=== PATIENT | male | born 2005 | race Caucasian/White ===

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

== ENCOUNTER 2023-02-24 13:57 | Emergency (ER) | payer OTHER, SELFPAY ==
[2023-02-24 14:07] VITALS: BP 127/81; PULSE 63; RESP 16; TEMP 37.2; O2SAT 99
--- NOTE | 2023-02-24 14:17 | ED.NAVMDI ---
HPI - Nausea/Vomiting/Diarrhea General Chief complaint: Nausea/Vomiting/Diarrhea Stated complaint: Vomiting Time Seen by Provider: 02/24/23 14:17 Source: patient Mode of arrival: ambulatory Limitations: no limitations History of Present Illness HPI Narrative: 17-year-old male presents to [facility] today for a work note. Patient reports that his brother approximately 1 week ago. He reports that he got some days off for bereavement leave but was very sad after the and needed another day off work. 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 Has taken him off the schedule until he brings in a work note. All systems reviewed and negative except as noted above. Related Data Home Medications Medication Instructions Recorded Confirmed No Home Medications 02/24/23 02/24/23 Allergies Allergy/AdvReac Type Severity Reaction Status Date / Time No Known Allergies Allergy Verified 07/18/21 08:01 Review of Systems Review of Systems: CONSTITUTIONAL: Denies fever, chills, or sweats. EYES: Denies visual changes, redness, or discharge. ENT: Denies rhinorrhea, congestion, sore throat, or otalgia. CARDIOVASCULAR: Denies chest pain, palpitations, or edema. RESPIRATORY: Denies cough or dyspnea. GASTROINTESTINAL: Denies abdominal pain, nausea, vomiting, or diarrhea. GENITOURINARY: Denies dysuria or hematuria. SKIN: Denies rash or itching. MUSCULOSKELETAL: Denies back pain, joint pain, or myalgia. NEUROLOGIC: Denies headache, numbness, or weakness. PSYCHIATRIC: Denies anxiety or depression. All other systems reviewed are negative, except as documented in HPI. [facility] Past Medical History Medical History Bipolar disorder Surgical History Surgical History No significant past surgical history Social History Social History Smoking status: Never smoker Tobacco type: cigarettes Alcohol intake: never Living arrangements: with family Gender identity (if verbalized by the patient): Male Comments At time of signature, agree with nursing past medical, surgical, social and family history. There is no relevant family history pertinent to the presenting complaint. Exam Narrative: GENERAL: This is a well-nourished, well-developed patient, in no apparent distress. HEAD: normocephalic, atraumatic. EYES: PERRL. Sclera clear/white. Vision is grossly intact. EARS: External ears normal, auditory canals clear and without drainage, TMs normal without perforation. Hearing grossly intact. NOSE: External nose normal with no obvious nasal discharge, nares without redness, no rhinorrhea. THROAT: Mucous membranes moist, posterior pharynx clear. NECK: Neck supple, non-tender without lymphadenopathy, masses or thyromegaly. CARDIOVASCULAR: Regular rate and rhythm without murmurs, gallops, or rubs. RESPIRATORY: Clear to auscultation. Breath sounds equal bilaterally. No wheezes, rales, or rhonchi. GASTROINTESTINAL: Abdomen soft, non-tender, nondistended. Bowel sounds are active. No hepato-splenomegaly, or palpable masses. No guarding. SKIN: warm, Dry, intact with no suspicious lesions or rash, good texture and turgor. NEURO: awake, alert, and oriented to person, place and time. There were no obvious focal neurologic abnormalities. EXTREMITIES: No joint tenderness, effusion, or edema noted. No calf tenderness. Negative Homans sign bilaterally. BACK: Nontender without deformity. No CVA tenderness. Course Course Level of Care: Express Care Visit Vital Signs Vital signs: Vital Signs Temperature 37.2 C 02/24/23 14:07 Pulse Rate 63 02/24/23 14:07 Respiratory Rate 16 02/24/23 14:07 Blood Pressure 127/81 02/24/23 14:07 Pulse Oximetry 99 02/24/23 14:07 Oxygen Delivery Room Air 02/24/23 14:07 Temperature 37.2 C 02/24/23
== END 2023-02-24 14:28 | disposition home or self-care (01) ==
PROVIDERS: Emergency Provider Nurse Practitioner Family
DX: Z71.1 Person with feared health complaint in whom no diagnosis is made (principal)
CPT/HCPCS: 99211; G0463

== ENCOUNTER 2023-03-04 18:29 | Emergency (ER) | payer OTHER, SELFPAY ==
[2023-03-04 18:42] VITALS: BP 122/70; PULSE 82; RESP 20; TEMP 36.3; O2SAT 99
[2023-03-04 18:54] LABS: Basophils Percent Auto 0.2 % (0.2-1.2); Eosinophils Percent Auto 0.1 % (0-4.4); Hematocrit 43.7 % (42.0-52.0); Hemoglobin 14.8 g/dL (14.0-18.0); Immature Granulocyte Absolute 0.03 K/mm3 (0.00-0.031); Immature Granulocyte Percent A 0.2 % (0-0.5); Lymphocytes Absolute Auto 1.06 K/mm3 (0.9-3.2); Lymphocytes Percent Auto 8.6 % (18.3-44.2); Mean Corpuscular HGB Conc 33.9 g/dl (32-36); Mean Corpuscular Volume 85.7 fl (80-100); Monocytes Absolute Auto 0.3 K/mm3 (0.1-0.6); Monocytes Percent Auto 2.1 % (2.6-8.5); Neutrophils Percent Auto 88.8 % (45.5-73.1); Platelet Count Result 228 k/mm3 (150-375); Red Cell Distribution Width 12.6 % (11.5-14.5); White Blood Count 12.4 K/mm3 (4.5-10.0)
[2023-03-04 19:04] LABS: Alanine Aminotransferase 21 U/L (6-50); Albumin Level 5.2 g/dL (3.7-5.6); Alkaline Phosphatase 101 U/L (58-237); Anion Gap 10 mmol/L (8-16); Aspartate Amino Transferase 22 U/L (17-59); Bilirubin,Total 0.5 mg/dL (0.2-1.3); Blood Urea Nitrogen 7 mg/dL (8-21); Calcium 9.6 mg/dL (8.9-10.7); Carbon Dioxide 26 mmol/L (22-30); Chloride 103 mmol/L (98-107); Estimated CRCL calculation 146 ml/min; Estimated Glomerular Filt Rate > 60; Glucose 108 mg/dL (65-110); Lipase 577 U/L (23-300); Potassium 4.1 mmol/L (3.4-5.0); Sodium 139 mmol/L (134-143)
[2023-03-04 20:02] VITALS: O2SAT 98
[2023-03-04 20:04] VITALS: BP 117/67; O2SAT 96
--- NOTE | 2023-03-04 20:20 | ED.NAVMDI ---
HPI - Nausea/Vomiting/Diarrhea General Chief complaint: Nausea/Vomiting/Diarrhea Stated complaint: vomiting Time Seen by Provider: 03/04/23 20:11 History of Present Illness HPI Narrative: Patient is a 17-year-old male presenting with nausea and vomiting. Patient states that since this morning he has had numerous episodes of vomiting. States that he has been vomiting bile since he has not been able to eat today. States that he also had an episode of diarrhea earlier today. Denies hematochezia or melena. He denies abdominal pain. States that he is does still feel a little bit nauseous. Denies chest pain, shortness of breath, cough, fevers, dysuria, hematuria, rashes. Related Data Allergies Allergy/AdvReac Type Severity Reaction Status Date / Time No Known Allergies Allergy Verified 07/18/21 08:01 Review of Systems Review of Systems: All systems reviewed & are unremarkable except as noted in HPI and below PMFSH Past Medical History Medical History Bipolar disorder Surgical History Surgical History No significant past surgical history Social History Social History Smoking status: Never smoker Tobacco type: cigarettes Alcohol intake: never Living arrangements: with family Gender identity (if verbalized by the patient): Male Exam Narrative: GENERAL: Well-appearing, well-nourished, and in no acute distress. HEAD: Normocephalic, atraumatic. EYES: PERRLA and EOMI. ENT: Nares clear, no rhinorrhea or epistaxis. Mucous membranes moist. NECK: Supple. CHEST: Clear to auscultation. No respiratory distress. HEART: Regular rate and rhythm. No murmur heard. Normal peripheral pulses. ABDOMEN: Soft, nontender, nondistended, no guarding or rebound EXTREMITIES: Normal range of motion. No edema. SKIN: Warm, dry, no rash. NEURO: No focal deficits. Alert and oriented x3. PSYCH: Normal mood and affect. Course Vital Signs Vital signs: Vital Signs Temperature 97.3 F L 03/04/23 18:42 Pulse Rate 82 03/04/23 18:42 Respiratory Rate 20 03/04/23 18:42 Blood Pressure 122/70 03/04/23 18:42 Pulse Oximetry 99 03/04/23 18:42 Oxygen Delivery Room Air 03/04/23 18:42 Temperature 97.3 F L 03/04/23 18:42 Pulse Rate 0 L 03/04/23 21:15 Respiratory Rate 20 03/04/23 18:42 Blood Pressure 112/68 03/04/23 20:47 Pulse Oximetry 96 03/04/23 20:04 Oxygen Delivery Room Air 03/04/23 18:42 MDM - Nausea/Vomiting/Diarrhea MDM Narrative Medical decision making narrative: Patient is a 17-year-old male presenting with 1 day of vomiting and diarrhea. Vitals within normal limits. Patient is nontoxic and in no acute distress. Exam remarkable for the above. Abdomen is soft, nontender, benign. Do not feel that imaging is warranted at this time given his reassuring abdominal exam. Plan for labs, fluids, Zofran, Pepcid. Blood work with leukocytosis. Renal function is normal. Lipase is normal. On reevaluation, the patient states that he feels improved. States that he feels mildly nauseated but he is starting to feel hungry. Discussed the reassuring work-up. We will send in a prescription for some Zofran. I suspect his symptoms are related to gastroenteritis with 12 hours of vomiting and some diarrhea. Advised that he follow-up with a primary care as well as his GI doctor. Appropriate return precautions were given. Patient and his mom voiced understanding and are agreeable with plan. Discharged in stable condition. Differential Diagnosis Differential diagnosis: Likely food poisoning, gastroenteritis and dehydration Medical Records Attestation: I reviewed the patient's medical records. Lab Data Attestation: I reviewed the patient's lab results. 03/04/23 18:47 03/04/23 18:47 Labs: Lab Results 0
[2023-03-04] MEDS: SODIUM CHLORIDE 0.9% IV 1,000 ML 999 ML IV CONT (20:23)
[2023-03-04] MEDS: ONDANSETRON INJ 4 MG/2 ML VIAL IV PUSH (20:24)
[2023-03-04] MEDS: FAMOTIDINE 20 MG/2 ML VIAL IV PUSH (20:26)
[2023-03-04 20:47] VITALS: BP 112/68
[2023-03-04 21:15] VITALS: PULSE 0
[2023-03-04] MEDS: ONDANSETRON HCL ODT 4 MG TABLET PO (21:52)
== END 2023-03-04 22:03 | disposition home or self-care (01) ==
PROVIDERS: Emergency Provider Emergency Medicine
DX: R11.2 Nausea with vomiting, unspecified (principal); R19.7 Diarrhea, unspecified
CPT/HCPCS: 36415; 80053; 83690; 85025; 96361; 96374; 96375; 99284; A9270; J2405; J7030